=== PATIENT | male | born 1970 | race African-American/Black ===

== ENCOUNTER 2021-10-22 09:42 | Emergency (ER) | payer BC, OTHER ==
[2021-10-22] MEDS ORDERED: Sodium Chloride 0.9% 1,000 ML IV ONE (10:36)
[2021-10-22 11:19] LABS: BLOOD UREA NITROGEN,BUN 12 mg/dL (7.0-18.0); CARBON DIOXIDE,CO2 27.1 mmol/L (21.0-32.0); CHLORIDE,CL 105 mmol/L (98-107); GLUCOSE RANDOM 107 mg/dL (74-106); LIPASE 111 U/L (73-393); POTASSIUM,K 3.9 mmol/L (3.5-5.1); SODIUM,NA 141 mmol/L (136-148)
[2021-10-22 11:37] LABS: CORONAVIRUS COVID-19 NAA NEGATIVE (NEGATIVE); INFLUENZA A NAA NEGATIVE (NEGATIVE); INFLUENZA B NAA NEGATIVE (NEGATIVE)
== END 2021-10-22 13:03 | disposition home or self-care (01) ==
LOC: MW.ED 09:42
DX: K52.9 Noninfective gastroenteritis and colitis, unspecified (principal); E03.9 Hypothyroidism, unspecified; Z79.899 Other long term (current) drug therapy; Z20.822 Contact with and (suspected) exposure to COVID-19
CPT/HCPCS: 0240U; 36415; 80053; 81003; 83690; 85025; 87045; 87046; 87328; 87329; 87449; 87899; 99284; J7030; 99283